=== PATIENT | female | born 1960 | race African-American/Black ===

== ENCOUNTER 2021-06-06 05:09 | Emergency (ER) | payer MEDICARE, OTHER ==
[2021-06-06 05:33] VITALS: BMI 29.9
[2021-06-06 06:42] LABS: BASO % 0.8 % (0-2.0); EOS % 4.3 % (0-4.5); HEMATOCRIT 32.5 % (32.4-45.2); HEMOGLOBIN 10.7 GM/dL (10.7-15.3); LYMPH % 27.4 % (8-40); MCH 23.9 pg (25.7-33.7); MCHC 32.9 g/dl (32.0-36.0); MEAN CELL VOLUME 72.7 fl (80-96); MEAN PLT VOLUME 7.3 fl (7.5-11.1); MONO % 7.2 % (3.8-10.2); NEUT % 60.3 % (42.8-82.8); PLATELET COUNT 418 10^3/uL (134-434); RBC 4.47 M/mm3 (3.60-5.2); RDW 15.6 % (11.6-15.6); WHITE BLOOD COUNT 8.5 K/mm3 (4.0-10.0)
[2021-06-06 06:51] LABS: CALCIUM 8.6 mg/dL (8.5-10.1)
[2021-06-06 06:52] LABS: ALBUMIN 2.4 g/dl (3.4-5.0); BLOOD UREA NITROGEN 20.5 mg/dL (7-18); INR 1.01 (0.83-1.09); PROTHROMBIN TIME (PATIENT) 12.4 SEC (9.7-13.0)
[2021-06-06 06:54] LABS: ACTIVATED PTT 26.6 SECONDS (25.2-36.5)
[2021-06-06 06:55] LABS: CREATININE 0.5 mg/dL (0.55-1.3)
[2021-06-06 06:56] LABS: BILIRUBIN,TOTAL 0.4 mg/dL (0.2-1); TOT PROT 6.9 g/dl (6.4-8.2)
[2021-06-06] MEDS ORDERED: ACETAMINOPHEN 1000 MG/100 ML VIAL (NON FORMULARY) IVPB ONE (11:57)
[2021-06-06] MEDS ORDERED: LORazepam 2 MG/ML SDV VIAL IVPUSH ONE (11:57)
[2021-06-06] MEDS ORDERED: LORazepam 2 MG/ML SDV VIAL ONE (12:08)
[2021-06-06] MEDS ORDERED: ACETAMINOPHEN INJECTION 100 ML IVPB ONE (12:09)
[2021-06-06 14:58] VITALS: TEMP 98
[2021-06-06 15:18] LABS: EPI CELLS 14 /uL (0-25.1); HYALINE CASTS 0 /uL (0-3.1); URINE APPEARANCE CLEAR; URINE BACTERIA 39 /uL (0-1359); URINE BILIRUBIN NEGATIVE (NEGATIVE); URINE COLOR YELLOW; URINE GLUCOSE (UA) NEGATIVE (NEGATIVE); URINE KETONE NEGATIVE (NEGATIVE); URINE LEUK ESTERASE NEGATIVE (NEGATIVE); URINE NITRITE NEGATIVE (NEGATIVE); URINE PROTEIN 1+ (NEGATIVE); URINE RBC 79 /uL (0-23.9); URINE UROBILINOGEN 0.2 mg/dL (0.2-1.0); URINE WBC 25 /uL (0-25.8)
[2021-06-06 15:53] VITALS: BP 119/81; PULSE 98
== END 2021-06-06 21:16 ==
LOC: JER 05:09
PROC: 3E033NZ Introduction of Analgesics, Hypnotics, Sedatives into Peripheral Vein, Percutaneous Approach (ICD-10-PCS; principal; 2021-06-06)
PROC: 3E033GC Introduction of Other Therapeutic Substance into Peripheral Vein, Percutaneous Approach (ICD-10-PCS; 2021-06-06)
DX: K94.23 Gastrostomy malfunction (principal)
CPT/HCPCS: 36415; 74177-TC; 80053; 81003; 83605; 83735; 85025; 85610; 85730; 87040; 87086; 87186; 93005; 93010; 96374; 96375; 99285-25; J0131; Q9967